=== PATIENT | female | born 1960 | race African-American/Black ===

== ENCOUNTER 2022-04-27 16:22 | Inpatient (IN) | payer OTHER ==
[2022-04-27 16:35] VITALS: BMI 33.3
[2022-04-27] MEDS ORDERED: LACTATED RINGERS SOLUTION 1000 ML INFUS.BAG IV ONE (17:21)
[2022-04-27] MEDS ORDERED: morphine CARPU-JECT 4 MG/1 ML DISP.SYRIN IVPUSH ONE ×2 (17:21→20:24)
[2022-04-27] MEDS ORDERED: ONDANSETRON 4 MG/2 ML VIAL ONE (17:24)
[2022-04-27] MEDS ORDERED: morphine SULFATE 4 MG/ML VIAL ONE ×2 (17:24→20:34)
[2022-04-27] MEDS ORDERED: ONDANSETRON 4 MG/2 ML VIAL IVPUSH ONE (17:28)
[2022-04-27 18:30] LABS: BASO % 0.3 % (0-2.0); EOS % 0.8 % (0-4.5); HEMATOCRIT 38.6 % (32.4-45.2); HEMOGLOBIN 12.5 GM/dL (10.7-15.3); LYMPH % 29.2 % (8-40); MCH 26.9 pg (25.7-33.7); MCHC 32.2 g/dl (32.0-36.0); MEAN CELL VOLUME 83.4 fl (80-96); MEAN PLT VOLUME 8.8 fl (7.5-11.1); MONO % 5.9 % (3.8-10.2); NEUT % 63.8 % (42.8-82.8); PLATELET COUNT 282 10^3/uL (134-434); RBC 4.63 M/mm3 (3.60-5.2); RDW 14.6 % (11.6-15.6); WHITE BLOOD COUNT 7.9 K/mm3 (4.0-10.0)
[2022-04-27 18:38] LABS: ALBUMIN 4.1 g/dl (3.4-5.0); BLOOD UREA NITROGEN 12.6 mg/dL (7-18); CALCIUM 9.7 mg/dL (8.5-10.1)
[2022-04-27 18:41] LABS: CREATININE 0.8 mg/dL (0.55-1.3)
[2022-04-27 18:43] LABS: BILIRUBIN,TOTAL 0.4 mg/dL (0.2-1); TOT PROT 8.1 g/dl (6.4-8.2)
[2022-04-27] MEDS ORDERED: PIPERACILLIN/TAZOB 3.375 GM 3.375 GM in DEXTROSE 5%-WATER - 50 ML IVPB ONE (19:33)
[2022-04-27] MEDS ORDERED: LIDOCAINE HCL 2% JELLY (5 ML/TUBE) ONE (19:49)
[2022-04-27] MEDS ORDERED: PIPERACILLIN/TAZOB 3.375 GM 3.375 GM/50 ML BAG IVPB ONE (20:20)
[2022-04-27] MEDS ORDERED: SODIUM CHLORIDE 1,000 ML IV SCH (23:00)
[2022-04-28] MEDS ORDERED: ONDANSETRON 4 MG/2 ML VIAL IVPUSH PRN ×3 (05:29→11:16)
[2022-04-28] MEDS: INSULIN SLIDING SCALE (NOVOLOG) 1 VIAL SQ SCH ×4 (06:15→22:00)
[2022-04-28] MEDS ORDERED: MIDAZOLAM HCL 2 MG/2 ML SINGLE DOSE VIAL ONE ×2 (08:14)
[2022-04-28] MEDS ORDERED: ROCURONIUM BROMIDE 50 MG/5 ML SYRINGE ONE (08:14)
[2022-04-28] MEDS ORDERED: SUCCINYLCHOLINE CHLORIDE 200 MG/10 ML SYRINGE ONE (08:14)
[2022-04-28] MEDS ORDERED: PROPOFOL 20 ML ONE ×3 (08:14→10:11)
[2022-04-28 08:36] LABS: URINE APPEARANCE CLEAR; URINE BILIRUBIN NEGATIVE (NEGATIVE); URINE COLOR YELLOW; URINE GLUCOSE (UA) 3+ (NEGATIVE); URINE KETONE NEGATIVE (NEGATIVE); URINE LEUK ESTERASE NEGATIVE (NEGATIVE); URINE NITRITE NEGATIVE (NEGATIVE); URINE PROTEIN NEGATIVE (NEGATIVE); URINE UROBILINOGEN 0.2 mg/dL (0.2-1.0)
[2022-04-28] MEDS ORDERED: ceFAZolin SODIUM 1 GM VIAL IVPB ONE (08:50)
[2022-04-28] MEDS ORDERED: DEXAMETHASONE SOD PHOSPHATE 4 MG/1 ML VIAL ONE (08:58)
[2022-04-28] MEDS ORDERED: ONDANSETRON 4 MG/2 ML VIAL ONE (08:58)
[2022-04-28] MEDS ORDERED: ceFAZolin SODIUM 1 GM VIAL ONE (09:00)
[2022-04-28] MEDS ORDERED: HYDROmorphone HCl 2 MG/ML VIAL ONE (09:35)
[2022-04-28] MEDS ORDERED: PIPERACILLIN/TAZOB 3.375 GM 3.375 GM in DEXTROSE 5%-WATER - 50 ML IVPB ONE (10:00)
[2022-04-28] MEDS ORDERED: NEOSTIGMINE METHYLSULFATE 0.5 MG/1 ML - 10 ML MDV ONE (10:04)
[2022-04-28] MEDS ORDERED: GLYCOPYRROLATE 0.2 MG/1 ML VIAL ONE (10:05)
[2022-04-28] MEDS ORDERED: LACTATED RINGERS SOLUTION 1,000 ML IV SCH (10:45)
[2022-04-28] MEDS ORDERED: ACETAMINOPHEN 1000 MG/100 ML BAG IVPB ONE (10:49)
[2022-04-28] MEDS ORDERED: HYDROmorphone *PCA* 10MG/50ML DISP.SYRIN PCA SCH ×2 (11:00→11:16)
[2022-04-28] MEDS ORDERED: HYDROmorphone *PCA* 10MG/50ML DISP.SYRIN ONE (11:00)
[2022-04-28] MEDS: LACTATED RINGERS SOLUTION 1,000 ML IV SCH ×2 (11:20→19:00)
[2022-04-28] MEDS ORDERED: ACETAMINOPHEN INJECTION 100 ML IVPB ONE (11:34)
[2022-04-28] MEDS: ACETAMINOPHEN 1000 MG/100 ML BAG IVPB SCH ×3 (11:35→22:04)
[2022-04-28 15:49] LABS: BASO % 0.1 % (0-2.0); HEMATOCRIT 37.2 % (32.4-45.2); HEMOGLOBIN 12.1 GM/dL (10.7-15.3); MCH 26.8 pg (25.7-33.7); MCHC 32.6 g/dl (32.0-36.0); MEAN CELL VOLUME 82.2 fl (80-96); MEAN PLT VOLUME 8.1 fl (7.5-11.1); MONO % 5.5 % (3.8-10.2); NEUT % 89.4 % (42.8-82.8); PLATELET COUNT 281 10^3/uL (134-434); RBC 4.52 M/mm3 (3.60-5.2); RDW 14.7 % (11.6-15.6); WHITE BLOOD COUNT 14.5 K/mm3 (4.0-10.0)
[2022-04-28 15:56] LABS: INR 0.99 (0.83-1.09); PROTHROMBIN TIME (PATIENT) 11.4 SEC (9.7-13.0)
[2022-04-28 15:59] LABS: ALBUMIN 3.7 g/dl (3.4-5.0); CALCIUM 8.8 mg/dL (8.5-10.1); MAGNESIUM 2.5 mg/dL (1.8-2.4)
[2022-04-28 16:00] LABS: BLOOD UREA NITROGEN 13.7 mg/dL (7-18)
[2022-04-28 16:03] LABS: CREATININE 0.9 mg/dL (0.55-1.3)
[2022-04-28 16:04] LABS: BILIRUBIN,TOTAL 0.5 mg/dL (0.2-1); TOT PROT 7.2 g/dl (6.4-8.2)
[2022-04-28] MEDS: HEPARIN NA (PORCINE) 5,000 UNITS/ML 1ML VIAL SQ SCH (22:04)
[2022-04-29] MEDS: LACTATED RINGERS SOLUTION 1,000 ML IV SCH ×3 (03:10→17:44)
[2022-04-29] MEDS: ACETAMINOPHEN 1000 MG/100 ML BAG IVPB SCH (06:00)
[2022-04-29] MEDS: INSULIN SLIDING SCALE (NOVOLOG) 1 VIAL SQ SCH ×4 (06:17→21:50)
[2022-04-29] MEDS: HEPARIN NA (PORCINE) 5,000 UNITS/ML 1ML VIAL SQ SCH ×2 (09:41→21:50)
[2022-04-29] MEDS ORDERED: ACETAMINOPHEN 500 MG TABLET (FP) PO PRN (10:44)
[2022-04-29] MEDS ORDERED: IBUPROFEN 600 MG TABLET (FP) PO PRN (10:45)
[2022-04-29] MEDS ORDERED: oxyCODONE HCL 5 MG TABLET PO PRN (10:45)
[2022-04-29 11:01] LABS: BASO % 0.1 % (0-2.0); EOS % 0.4 % (0-4.5); HEMATOCRIT 32.3 % (32.4-45.2); HEMOGLOBIN 10.5 GM/dL (10.7-15.3); LYMPH % 18.2 % (8-40); MCH 27.1 pg (25.7-33.7); MCHC 32.5 g/dl (32.0-36.0); MEAN CELL VOLUME 83.3 fl (80-96); MEAN PLT VOLUME 8.4 fl (7.5-11.1); MONO % 8.1 % (3.8-10.2); NEUT % 73.2 % (42.8-82.8); PLATELET COUNT 249 10^3/uL (134-434); RBC 3.87 M/mm3 (3.60-5.2); RDW 14.5 % (11.6-15.6); WHITE BLOOD COUNT 9.2 K/mm3 (4.0-10.0)
[2022-04-29 11:22] LABS: CALCIUM 8.5 mg/dL (8.5-10.1)
[2022-04-29 11:26] LABS: CREATININE 0.8 mg/dL (0.55-1.3)
[2022-04-29] MEDS ORDERED: PROPOFOL 20 ML ONE ×3 (13:42)
[2022-04-29] MEDS ORDERED: ONDANSETRON 4 MG/2 ML VIAL ONE ×2 (14:14→16:29)
[2022-04-29] MEDS ORDERED: MIDAZOLAM HCL 2 MG/2 ML SINGLE DOSE VIAL ONE (14:23)
[2022-04-29] MEDS ORDERED: BUPIVACAINE HCL/PF 0.25% (2.5MG/ML) 10 ML VIAL ONE (14:23)
[2022-04-29] MEDS ORDERED: LIDOCAINE HCL 1%, 10 MG/ML (20ML VIAL) ONE (14:23)
[2022-04-29] MEDS ORDERED: ceFAZolin SODIUM 1 GM VIAL IVPB ONE (14:25)
[2022-04-29] MEDS ORDERED: LIDOCAINE HCL 1%, 10 MG/ML (20ML VIAL) INF ONE ×2 (14:29)
[2022-04-29] MEDS ORDERED: BUPIVACAINE HCL/PF 0.25% (2.5MG/ML) 10 ML VIAL IJ ONE ×2 (14:30)
[2022-04-29] MEDS ORDERED: ceFAZolin SODIUM 1 GM VIAL ONE (14:37)
[2022-04-29] MEDS ORDERED: BENZOCAINE/MENTH/CETYLPYRD CL 1 EACH LOZENGE MM PRN ×2 (15:22)
[2022-04-29] MEDS: ONDANSETRON 4 MG/2 ML VIAL IVPUSH PRN (16:25)
[2022-04-29 16:38] LABS: BASO % 0.2 % (0-2.0); EOS % 0.4 % (0-4.5); HEMATOCRIT 31.8 % (32.4-45.2); HEMOGLOBIN 10.3 GM/dL (10.7-15.3); LYMPH % 14.3 % (8-40); MCH 27.1 pg (25.7-33.7); MCHC 32.4 g/dl (32.0-36.0); MEAN CELL VOLUME 83.5 fl (80-96); MEAN PLT VOLUME 8.5 fl (7.5-11.1); NEUT % 77.1 % (42.8-82.8); PLATELET COUNT 226 10^3/uL (134-434); RDW 14.6 % (11.6-15.6); WHITE BLOOD COUNT 10.3 K/mm3 (4.0-10.0)
[2022-04-29] MEDS: AMOX TR/POT CLAV 875MG/125MG TABLETS (FP) PO SCH (19:12)
[2022-04-29] MEDS: SIMETHICONE 80 MG TAB.CHEW (FP) PO PRN (20:54)
[2022-04-29] MEDS: FAMOTIDINE 20 MG/50 ML IVPB 20 MG/50 ML MG IVPB SCH (21:50)
[2022-04-29] MEDS: ACETAMINOPHEN 500 MG TABLET (FP) PO PRN (23:10)
[2022-04-30] MEDS: SIMETHICONE 80 MG TAB.CHEW (FP) PO PRN ×3 (02:22→16:58)
[2022-04-30] MEDS: ONDANSETRON 4 MG/2 ML VIAL IVPUSH PRN (02:24)
[2022-04-30] MEDS ORDERED: PIPERACILLIN/TAZOB 3.375 GM 3.375 GM in DEXTROSE 5%-WATER - 50 ML IVPB ONE (03:01)
[2022-04-30] MEDS ORDERED: PIPERACILLIN/TAZOBACTAM 3.375 GM VIAL IVPB ONE (03:10)
[2022-04-30] MEDS: LACTATED RINGERS SOLUTION 1,000 ML IV SCH (06:03)
[2022-04-30] MEDS: INSULIN SLIDING SCALE (NOVOLOG) 1 VIAL SQ SCH ×4 (06:29→21:57)
[2022-04-30] MEDS: AMOX TR/POT CLAV 875MG/125MG TABLETS (FP) PO SCH ×2 (08:39→16:58)
[2022-04-30] MEDS: FAMOTIDINE 20 MG/50 ML IVPB 20 MG/50 ML MG IVPB SCH ×2 (09:54→21:57)
[2022-04-30] MEDS: HEPARIN NA (PORCINE) 5,000 UNITS/ML 1ML VIAL SQ SCH ×2 (09:55→21:57)
[2022-04-30 10:04] LABS: BASO % 0.3 % (0-2.0); EOS % 0.3 % (0-4.5); HEMOGLOBIN 9.7 GM/dL (10.7-15.3); LYMPH % 18.9 % (8-40); MCH 27.2 pg (25.7-33.7); MCHC 32.5 g/dl (32.0-36.0); MEAN CELL VOLUME 83.7 fl (80-96); MEAN PLT VOLUME 8.7 fl (7.5-11.1); MONO % 7.8 % (3.8-10.2); NEUT % 72.7 % (42.8-82.8); PLATELET COUNT 241 10^3/uL (134-434); RBC 3.58 M/mm3 (3.60-5.2); RDW 14.8 % (11.6-15.6); WHITE BLOOD COUNT 10.1 K/mm3 (4.0-10.0)
[2022-04-30 10:34] LABS: CALCIUM 8.5 mg/dL (8.5-10.1)
[2022-04-30 10:35] LABS: BLOOD UREA NITROGEN 11.9 mg/dL (7-18); MAGNESIUM 2.5 mg/dL (1.8-2.4)
[2022-04-30 10:38] LABS: CREATININE 0.7 mg/dL (0.55-1.3); PHOSPHOROUS 2.6 mg/dL (2.5-4.9)
[2022-04-30 10:39] LABS: BILIRUBIN,TOTAL 0.6 mg/dL (0.2-1); TOT PROT 6.4 g/dl (6.4-8.2)
[2022-04-30] MEDS: ACETAMINOPHEN 500 MG TABLET (FP) PO PRN (17:34)
[2022-04-30] MEDS: oxyCODONE HCL 5 MG TABLET PO PRN (22:07)
[2022-05-01] MEDS: INSULIN SLIDING SCALE (NOVOLOG) 1 VIAL SQ SCH ×4 (07:38→21:47)
[2022-05-01] MEDS: AMOX TR/POT CLAV 875MG/125MG TABLETS (FP) PO SCH ×2 (07:40→17:04)
[2022-05-01] MEDS: ONDANSETRON 4 MG/2 ML VIAL IVPUSH PRN (08:32)
[2022-05-01] MEDS ORDERED: DEXTROSE 5%-0.45% SALINE 1,000 ML IV SCH (09:00)
[2022-05-01] MEDS: HEPARIN NA (PORCINE) 5,000 UNITS/ML 1ML VIAL SQ SCH ×2 (09:21→21:11)
[2022-05-01] MEDS: FAMOTIDINE 20 MG/50 ML IVPB 20 MG/50 ML MG IVPB SCH ×2 (09:21→21:10)
[2022-05-01] MEDS: SIMETHICONE 80 MG TAB.CHEW (FP) PO PRN ×2 (10:21→21:11)
[2022-05-01] MEDS: oxyCODONE HCL 5 MG TABLET PO PRN (10:21)
[2022-05-01 11:46] LABS: BASO % 0.5 % (0-2.0); EOS % 1.3 % (0-4.5); HEMATOCRIT 29.8 % (32.4-45.2); HEMOGLOBIN 9.6 GM/dL (10.7-15.3); LYMPH % 21.5 % (8-40); MCHC 32.3 g/dl (32.0-36.0); MEAN CELL VOLUME 83.7 fl (80-96); MEAN PLT VOLUME 8.4 fl (7.5-11.1); NEUT % 68.7 % (42.8-82.8); PLATELET COUNT 240 10^3/uL (134-434); RBC 3.57 M/mm3 (3.60-5.2); RDW 14.2 % (11.6-15.6); WHITE BLOOD COUNT 8.4 K/mm3 (4.0-10.0)
[2022-05-01 12:05] LABS: CALCIUM 8.7 mg/dL (8.5-10.1)
[2022-05-01 12:06] LABS: BLOOD UREA NITROGEN 8.6 mg/dL (7-18)
[2022-05-01 12:09] LABS: CREATININE 0.6 mg/dL (0.55-1.3)
[2022-05-01] MEDS: DOCUSATE SODIUM 100 MG CAPSULE (FP) PO SCH ×2 (14:05→21:11)
[2022-05-01] MEDS: AMINO ACIDS 4.25%/D5W 1,000 ML IV SCH (17:39)
[2022-05-01] MEDS: ACETAMINOPHEN 500 MG TABLET (FP) PO PRN (22:24)
[2022-05-02] MEDS: oxyCODONE HCL 5 MG TABLET PO PRN ×3 (01:39→20:53)
[2022-05-02] MEDS: DOCUSATE SODIUM 100 MG CAPSULE (FP) PO SCH ×3 (06:10→20:59)
[2022-05-02] MEDS: INSULIN SLIDING SCALE (NOVOLOG) 1 VIAL SQ SCH ×4 (06:10→21:08)
[2022-05-02] MEDS: AMINO ACIDS 4.25%/D5W 1,000 ML IV SCH ×2 (07:17→16:09)
[2022-05-02] MEDS: AMOX TR/POT CLAV 875MG/125MG TABLETS (FP) PO SCH ×2 (08:38→16:31)
[2022-05-02] MEDS: HEPARIN NA (PORCINE) 5,000 UNITS/ML 1ML VIAL SQ SCH ×2 (10:12→21:00)
[2022-05-02] MEDS: FAMOTIDINE 20 MG/50 ML IVPB 20 MG/50 ML MG IVPB SCH ×2 (10:12→20:59)
[2022-05-02] MEDS: ACETAMINOPHEN 500 MG TABLET (FP) PO PRN (10:24)
[2022-05-02] MEDS: MAG HYDROX/AL HYDROX/SIMETH 30 ML UNIT-DOSE CUP PO PRN ×3 (10:24→21:00)
[2022-05-02 10:43] LABS: BASO % 0.8 % (0-2.0); HEMATOCRIT 30.7 % (32.4-45.2); HEMOGLOBIN 10.1 GM/dL (10.7-15.3); LYMPH % 23.9 % (8-40); MCH 27.8 pg (25.7-33.7); MEAN CELL VOLUME 84.2 fl (80-96); MEAN PLT VOLUME 7.8 fl (7.5-11.1); MONO % 7.2 % (3.8-10.2); NEUT % 66.1 % (42.8-82.8); PLATELET COUNT 277 10^3/uL (134-434); RBC 3.65 M/mm3 (3.60-5.2); RDW 14.4 % (11.6-15.6); WHITE BLOOD COUNT 8.5 K/mm3 (4.0-10.0)
[2022-05-02] MEDS ORDERED: INSULIN (NOVOLOG) ASPART 100 UNITS/ML 10ML VIAL ONE (11:04)
[2022-05-02 11:16] LABS: CALCIUM 8.7 mg/dL (8.5-10.1)
[2022-05-02 11:17] LABS: BLOOD UREA NITROGEN 10.5 mg/dL (7-18)
[2022-05-02 11:20] LABS: CREATININE 0.6 mg/dL (0.55-1.3)
[2022-05-02] MEDS: SIMETHICONE 80 MG TAB.CHEW (FP) PO PRN ×2 (16:01→20:59)
[2022-05-03] MEDS: oxyCODONE HCL 5 MG TABLET PO PRN (02:53)
[2022-05-03] MEDS: MAG HYDROX/AL HYDROX/SIMETH 30 ML UNIT-DOSE CUP PO PRN (02:53)
[2022-05-03] MEDS: AMINO ACIDS 4.25%/D5W 1,000 ML IV SCH ×2 (05:54→16:19)
[2022-05-03] MEDS: INSULIN SLIDING SCALE (NOVOLOG) 1 VIAL SQ SCH ×4 (06:27→21:14)
[2022-05-03] MEDS: DOCUSATE SODIUM 100 MG CAPSULE (FP) PO SCH ×3 (06:27→21:16)
[2022-05-03] MEDS ORDERED: ACETAMINOPHEN 1000 MG/100 ML BAG IVPB ONE (07:44)
[2022-05-03] MEDS: FAMOTIDINE 20 MG/50 ML IVPB 20 MG/50 ML MG IVPB SCH ×2 (09:13→21:16)
[2022-05-03] MEDS: SIMETHICONE 80 MG TAB.CHEW (FP) PO PRN (10:00)
[2022-05-03 11:52] LABS: BASO % 0.4 % (0-2.0); EOS % 1.5 % (0-4.5); HEMATOCRIT 30.6 % (32.4-45.2); MCHC 32.5 g/dl (32.0-36.0); MEAN PLT VOLUME 8.3 fl (7.5-11.1); MONO % 8.6 % (3.8-10.2); NEUT % 68.5 % (42.8-82.8); PLATELET COUNT 329 10^3/uL (134-434); RBC 3.69 M/mm3 (3.60-5.2); RDW 14.3 % (11.6-15.6); WHITE BLOOD COUNT 8.6 K/mm3 (4.0-10.0)
[2022-05-03] MEDS ORDERED: morphine SULFATE 4 MG/ML VIAL IVPUSH PRN (12:13)
[2022-05-03 12:21] LABS: CALCIUM 8.6 mg/dL (8.5-10.1)
[2022-05-03 12:22] LABS: BLOOD UREA NITROGEN 10.2 mg/dL (7-18); MAGNESIUM 2.3 mg/dL (1.8-2.4)
[2022-05-03 12:25] LABS: CREATININE 0.5 mg/dL (0.55-1.3); PHOSPHOROUS 2.6 mg/dL (2.5-4.9)
[2022-05-03 14:15] LABS: URINE APPEARANCE CLOUDY; URINE BILIRUBIN NEGATIVE (NEGATIVE); URINE COLOR YELLOW; URINE GLUCOSE (UA) 1+ (NEGATIVE); URINE KETONE TRACE (NEGATIVE)
[2022-05-03 14:16] LABS: PH,URINE 7.5 (5.0-8.0); URINE LEUK ESTERASE NEGATIVE (NEGATIVE); URINE NITRITE NEGATIVE (NEGATIVE); URINE PROTEIN NEGATIVE (NEGATIVE); URINE UROBILINOGEN 0.2 mg/dL (0.2-1.0)
[2022-05-03] MEDS: ACETAMINOPHEN 1000 MG/100 ML BAG IVPB PRN (16:19)
[2022-05-03] MEDS: morphine SULFATE 4 MG/ML VIAL IVPUSH PRN (20:30)
[2022-05-04] MEDS: AMINO ACIDS 4.25%/D5W 1,000 ML IV SCH ×3 (05:00→17:06)
[2022-05-04] MEDS: ACETAMINOPHEN 1000 MG/100 ML BAG IVPB PRN (06:31)
[2022-05-04] MEDS: DOCUSATE SODIUM 100 MG CAPSULE (FP) PO SCH ×3 (06:31→21:48)
[2022-05-04] MEDS: INSULIN SLIDING SCALE (NOVOLOG) 1 VIAL SQ SCH ×4 (06:59→21:52)
[2022-05-04 10:04] LABS: BASO % 0.4 % (0-2.0); EOS % 2.7 % (0-4.5); HEMATOCRIT 31.4 % (32.4-45.2); HEMOGLOBIN 10.1 GM/dL (10.7-15.3); LYMPH % 23.3 % (8-40); MCH 26.9 pg (25.7-33.7); MCHC 32.2 g/dl (32.0-36.0); MEAN CELL VOLUME 83.6 fl (80-96); MEAN PLT VOLUME 8.2 fl (7.5-11.1); MONO % 8.9 % (3.8-10.2); NEUT % 64.7 % (42.8-82.8); PLATELET COUNT 314 10^3/uL (134-434); RBC 3.76 M/mm3 (3.60-5.2); RDW 14.6 % (11.6-15.6); WHITE BLOOD COUNT 7.7 K/mm3 (4.0-10.0)
[2022-05-04] MEDS: FAMOTIDINE 20 MG/50 ML IVPB 20 MG/50 ML MG IVPB SCH ×2 (10:49→21:48)
[2022-05-04] MEDS: HEPARIN NA (PORCINE) 5,000 UNITS/ML 1ML VIAL SQ SCH ×2 (10:49→21:48)
[2022-05-04 10:55] LABS: BILIRUBIN,TOTAL 0.4 mg/dL (0.2-1); CREATININE 0.6 mg/dL (0.55-1.3); TOT PROT 6.6 g/dl (6.4-8.2)
[2022-05-04 10:56] LABS: ALBUMIN 3.2 g/dl (3.4-5.0)
[2022-05-04 10:57] LABS: CALCIUM 8.9 mg/dL (8.5-10.1)
[2022-05-04] MEDS: morphine SULFATE 4 MG/ML VIAL IVPUSH PRN ×2 (13:22→21:54)
[2022-05-04] MEDS: SIMETHICONE 80 MG TAB.CHEW (FP) PO PRN (18:17)
[2022-05-05] MEDS: DOCUSATE SODIUM 100 MG CAPSULE (FP) PO SCH ×3 (06:14→21:13)
[2022-05-05] MEDS: AMINO ACIDS 4.25%/D5W 1,000 ML IV SCH ×2 (06:14→16:38)
[2022-05-05] MEDS: INSULIN SLIDING SCALE (NOVOLOG) 1 VIAL SQ SCH ×4 (06:15→23:07)
[2022-05-05 08:37] LABS: BASO % 0.3 % (0-2.0); HEMOGLOBIN 9.6 GM/dL (10.7-15.3); LYMPH % 22.1 % (8-40); MCH 27.2 pg (25.7-33.7); MCHC 33.1 g/dl (32.0-36.0); MEAN CELL VOLUME 82.2 fl (80-96); MEAN PLT VOLUME 7.6 fl (7.5-11.1); MONO % 9.1 % (3.8-10.2); NEUT % 67.5 % (42.8-82.8); PLATELET COUNT 364 10^3/uL (134-434); RBC 3.53 M/mm3 (3.60-5.2); RDW 14.3 % (11.6-15.6); WHITE BLOOD COUNT 5.7 K/mm3 (4.0-10.0)
[2022-05-05 09:07] LABS: ALBUMIN 3.1 g/dl (3.4-5.0); BLOOD UREA NITROGEN 12.6 mg/dL (7-18); CALCIUM 8.4 mg/dL (8.5-10.1)
[2022-05-05 09:10] LABS: CREATININE 0.5 mg/dL (0.55-1.3)
[2022-05-05 09:11] LABS: TOT PROT 6.4 g/dl (6.4-8.2)
[2022-05-05 09:12] LABS: BILIRUBIN,TOTAL 0.4 mg/dL (0.2-1)
[2022-05-05] MEDS: FAMOTIDINE 20 MG/50 ML IVPB 20 MG/50 ML MG IVPB SCH ×2 (10:09→21:13)
[2022-05-05] MEDS: HEPARIN NA (PORCINE) 5,000 UNITS/ML 1ML VIAL SQ SCH ×2 (10:10→23:07)
[2022-05-05] MEDS: morphine SULFATE 4 MG/ML VIAL IVPUSH PRN (23:07)
[2022-05-06] MEDS: AMINO ACIDS 4.25%/D5W 1,000 ML IV SCH ×3 (06:06→22:25)
[2022-05-06] MEDS: DOCUSATE SODIUM 100 MG CAPSULE (FP) PO SCH ×3 (06:07→23:12)
[2022-05-06] MEDS: INSULIN SLIDING SCALE (NOVOLOG) 1 VIAL SQ SCH ×4 (06:07→23:30)
[2022-05-06] MEDS: FAMOTIDINE 20 MG/50 ML IVPB 20 MG/50 ML MG IVPB SCH ×2 (09:29→23:12)
[2022-05-06] MEDS: HEPARIN NA (PORCINE) 5,000 UNITS/ML 1ML VIAL SQ SCH ×2 (09:29→23:13)
[2022-05-06 09:34] LABS: BASO % 0.7 % (0-2.0); HEMATOCRIT 31.3 % (32.4-45.2); HEMOGLOBIN 10.1 GM/dL (10.7-15.3); LYMPH % 30.7 % (8-40); MCH 26.9 pg (25.7-33.7); MCHC 32.2 g/dl (32.0-36.0); MEAN CELL VOLUME 83.5 fl (80-96); MEAN PLT VOLUME 7.8 fl (7.5-11.1); MONO % 9.9 % (3.8-10.2); NEUT % 57.7 % (42.8-82.8); PLATELET COUNT 387 10^3/uL (134-434); RBC 3.75 M/mm3 (3.60-5.2); RDW 14.5 % (11.6-15.6); WHITE BLOOD COUNT 6.8 K/mm3 (4.0-10.0)
[2022-05-06 10:03] LABS: ALBUMIN 3.4 g/dl (3.4-5.0); BLOOD UREA NITROGEN 12.3 mg/dL (7-18); CALCIUM 8.8 mg/dL (8.5-10.1)
[2022-05-06 10:07] LABS: CREATININE 0.6 mg/dL (0.55-1.3)
[2022-05-06 10:09] LABS: BILIRUBIN,TOTAL 0.4 mg/dL (0.2-1); TOT PROT 6.9 g/dl (6.4-8.2)
[2022-05-06 12:35] VITALS: RESP 18
[2022-05-06] MEDS ORDERED: INSULIN (NOVOLOG) ASPART 100 UNITS/ML 10ML VIAL ONE (22:51)
[2022-05-06] MEDS: morphine SULFATE 4 MG/ML VIAL IVPUSH PRN (23:06)
[2022-05-07] MEDS: DOCUSATE SODIUM 100 MG CAPSULE (FP) PO SCH ×3 (06:30→22:22)
[2022-05-07] MEDS: AMINO ACIDS 4.25%/D5W 1,000 ML IV SCH (06:32)
[2022-05-07] MEDS: INSULIN SLIDING SCALE (NOVOLOG) 1 VIAL SQ SCH ×4 (08:36→22:25)
[2022-05-07 09:21] LABS: BASO % 0.3 % (0-2.0); EOS % 1.1 % (0-4.5); HEMOGLOBIN 10.5 GM/dL (10.7-15.3); LYMPH % 24.8 % (8-40); MCH 27.2 pg (25.7-33.7); MCHC 32.9 g/dl (32.0-36.0); MEAN CELL VOLUME 82.7 fl (80-96); MEAN PLT VOLUME 7.7 fl (7.5-11.1); MONO % 9.5 % (3.8-10.2); NEUT % 64.3 % (42.8-82.8); PLATELET COUNT 435 10^3/uL (134-434); RBC 3.86 M/mm3 (3.60-5.2); RDW 14.4 % (11.6-15.6); WHITE BLOOD COUNT 7.2 K/mm3 (4.0-10.0)
[2022-05-07] MEDS: FAMOTIDINE 20 MG/50 ML IVPB 20 MG/50 ML MG IVPB SCH ×2 (09:29→22:22)
[2022-05-07] MEDS: HEPARIN NA (PORCINE) 5,000 UNITS/ML 1ML VIAL SQ SCH ×2 (09:30→22:22)
[2022-05-07 09:54] LABS: CALCIUM 9.1 mg/dL (8.5-10.1)
[2022-05-07 09:55] LABS: ALBUMIN 3.5 g/dl (3.4-5.0); BLOOD UREA NITROGEN 14.8 mg/dL (7-18)
[2022-05-07 09:58] LABS: CREATININE 0.6 mg/dL (0.55-1.3)
[2022-05-07 10:00] LABS: BILIRUBIN,TOTAL 0.4 mg/dL (0.2-1); TOT PROT 7.2 g/dl (6.4-8.2)
[2022-05-08] MEDS: DOCUSATE SODIUM 100 MG CAPSULE (FP) PO SCH (06:14)
[2022-05-08] MEDS: INSULIN SLIDING SCALE (NOVOLOG) 1 VIAL SQ SCH ×2 (06:15→11:24)
[2022-05-08] MEDS: HEPARIN NA (PORCINE) 5,000 UNITS/ML 1ML VIAL SQ SCH (09:11)
[2022-05-08] MEDS: FAMOTIDINE 20 MG/50 ML IVPB 20 MG/50 ML MG IVPB SCH (09:11)
[2022-05-08 13:59] VITALS: BP 122/64; PULSE 84; TEMP 98.6
== END 2022-05-08 14:38 | disposition home health service (06) | DRG 336 ==
LOC: JER 16:22 → JERBED 19:34 → J6S 04-28 01:26
PROVIDERS: ADMIT Hospitalist; ATTEND Internal Medicine
PROC: 0WUF0JZ Supplement Abdominal Wall with Synthetic Substitute, Open Approach (ICD-10-PCS; principal; 2022-04-28 08:00)
PROC: 0DNW0ZZ Release Peritoneum, Open Approach (ICD-10-PCS; 2022-04-28 08:00)
PROC: 0W9F0ZZ Drainage of Abdominal Wall, Open Approach (ICD-10-PCS; 2022-04-29)
DX: K43.6 Other and unspecified ventral hernia with obstruction, without gangrene (principal); K56.7 Ileus, unspecified; I97.622 Postprocedural seroma of a circulatory system organ or structure following other procedure; I97.621 Postprocedural hematoma of a circulatory system organ or structure following other procedure; E11.9 Type 2 diabetes mellitus without complications; K76.0 Fatty (change of) liver, not elsewhere classified; I10 Essential (primary) hypertension; Y83.9 Surgical procedure, unspecified as the cause of abnormal reaction of the patient, or of later complication, without mention of misadventure at the time of the procedure; N73.6 Female pelvic peritoneal adhesions (postinfective); Z68.33 Body mass index [BMI] 33.0-33.9, adult; E66.01 Morbid (severe) obesity due to excess calories
CPT/HCPCS: 36415; 71045-TC-FY; 74019-TC-FY; 74177-TC; 80048; 80053; 81003; 82962; 83036; 83605; 83735; 84100; 84443; 85025; 85610; 86850; 86900; 86901; 87086; 88302-TC; 88304-TC; 93005; 93010; 94010; 94760; 97116-GP; 97162-GP; 99285-25; C9803-CS; J1644; Q9967; U0003; U0005